=== PATIENT | male | born 1965 | race Caucasian/White ===

== ENCOUNTER → 2020-05-09 16:41 | Outpatient (CLI) | payer OTHER, SELFPAY ==
--- NOTE | ~2020-05-09 | XR_ITS ---
EXAMINATION: XR knee RT 3V EXAM DATE: 05/09/2020 18:56 INDICATION: No known recent injury provided at this time. Pain of the right knee. TECHNIQUE: Three projections of the right knee. There is no prior study for comparison. FINDINGS: No evidence osteochondral defect or joint body in the right knee joint. No joint effusio n. There are no acute fractures or dislocations identified. There is no subcutaneous gas. The soft tissue is unremarkable. There are no radiopaque foreign bodies. There is minimal patellofemoral co mpartment primary osteoarthritis. IMPRESSION: Minimal right patellofemoral compartment osteoarthritis. Reviewed, dictated and finalized at location A. [employer] STERILIZER
== END ==
PROVIDERS: PCP Family Medicine; Visit Provider Physician Assistant
DX: M25.569 Pain in unspecified knee (principal)
CPT/HCPCS: 73562

== ENCOUNTER 2021-05-16 07:05 | Outpatient (CLI) | payer OTHER, SELFPAY ==
--- NOTE | ~2021-05-16 | XR_ITS ---
EXAMINATION: XR chest 2V 05/16/2021 07:24 INDICATION: Chest pain PROCEDURE: 2 view chest COMPARISON: 08/03/2010 FINDINGS: The lungs are clear. The cardiomediastinal silhouette is within normal limits. There are no pleural effusions. There is no pneumothorax suspected. IMPRESSION: 1: NO ACUTE CARDIOPULMONARY DISEASE. Reviewed, dictated and finalized at location A. AL COP
--- NOTE | ~2021-05-16 | XR_ITS ---
XR thoracic spine 3V DATE: 05/16/2021 07:24 INDICATION: Back pain. No injury. TECHNIQUE: AP, lateral, swimmer views COMPARISON: 02/08/2006 thoracic spine FINDINGS: There is approximately 2.3 mm retrolisthesis and prominent degenerative disc disease at C3- 4. There is mild degenerative disease at C4-5. There is severe degenerative disc disease at C5-6. There is minimal degenerative spurring of the thoracic spine. No fracture or bone destruction of the thoracic spine is evident. The thoracic pedicles are intact. No paraspinal soft tissue thickening. Multilevel moderate degenerative disc disease of the included upper and mid lumbar spine. IMPRESSION: Degenerative changes Reviewed, dictated and finalized at location B. [employer] IMPRESSION: Degenerative changes
== END 2021-05-16 07:06 | disposition home or self-care (01) ==
PROVIDERS: PCP Family Medicine; Visit Provider Family Medicine
DX: M54.9 Dorsalgia, unspecified (principal); R07.89 Other chest pain
CPT/HCPCS: 71046; 72072

== ENCOUNTER 2022-02-23 10:30 | Outpatient (CLI) | payer OTHER, SELFPAY ==
--- NOTE | ~2022-02-23 | MR_ITS ---
EXAMINATION: MR foot LT wo/w con DATE: 02/23/2022 11:32 INDICATION: Soft tissue mass at the left foot TECHNIQUE: Magnetic resonance imaging (MRI) of the left fore/mid foot was performed without and with 18 mL Multihance intravenous contrast. Sequences included axial, sagittal and coronal T1-weighted FSE , sagittal fluid sensitive FSE STIR, coronal PD-weighted FS FSE, axial T2-weighted FS FSE, axial T1-w eighted FS FSE and postcontrast axial, sagittal and coronal T1-weighted FS FSE. A marker was placed o charlie the mass of concern. COMPARISON: None FINDINGS: Mild hallux valgus. Alignment is otherwise normal. No fracture or pathologic marrow replacing process . The marker overlies 3.1 x 2.2 x 1.6 cm homogeneously T2 hyperintense ganglion cyst with smooth thin enhancing rim positioned dorsally between the necks of the first and second metatarsals appearing to arise from the first metatarsophalangeal joint where there is moderate to severe osteoarthritis. Add itional mild osteoarthritis at the tarsal metatarsal and several interphalangeal joints. Lisfranc lig ament complex and the collateral ligament complex at the metatarsophalangeal and interphalangeal join ts are normal. Visualized portions of the flexor and extensor tendons as well as intrinsic musculatur e of the foot are normal. No other joint effusions or other abnormal fluid collections. IMPRESSION: 1. Moderate to severe osteoarthritis at the first metatarsophalangeal joint with 3.1 x 2.2 x 1.6 cm g anglion cyst arising from the joint space and positioned dorsally between the necks of the first and second metatarsals conifer the masslike region of concern. Reviewed, dictated and finalized at location A. IMPRESSION: 1. Moderate to severe osteoarthritis at the first metatarsophalangeal joint wit h 3.1 x 2.2 x 1.6 cm ganglion cyst arising from the joint space and positioned dorsally between the necks of the first and second metatarsals conifer the mass like region of concern.
== END 2022-02-23 10:31 ==
PROVIDERS: PCP Family Medicine; Visit Provider Podiatrist Foot & Ankle Surgery
DX: M19.072 Primary osteoarthritis, left ankle and foot (principal)
CPT/HCPCS: 73720; A9577

== ENCOUNTER 2022-04-03 08:08 | Outpatient (CLI) | payer OTHER, SELFPAY ==
--- NOTE | 2022-04-03 08:23 | ECG_ITS ---
Measurements Intervals [place] Rate: 60 P: 20 AR: 164 QRS: 9 QRSD: 110 T: 8 QT: 376 QTc: 376 Interpretive Statements SINUS RHYTHM DELAYED PRECORDIAL R/S TRANSITION BORDERLINE ECG NO PREVIOUS ECG AVAILABLE FOR COMPARISON Electronically Signed On 04-03-2022 8:54:51 STOCK FEEDER by Wally Owens D.O.
[2022-04-03 08:50] LABS: Anion Gap 9 mmol/L (8-16); Blood Urea Nitrogen 10 mg/dL (9-20); Calcium 8.8 mg/dL (8.4-10.2); Carbon Dioxide 29 mmol/L (22-30); Chloride 101 mmol/L (98-107); Estimated Glomerular Filt Rate > 60; Glucose 106 mg/dL (65-110); Potassium 4.6 mmol/L (3.4-5.0); Sodium 139 mmol/L (137-145)
== END 2022-04-03 08:09 | disposition home or self-care (01) ==
LOC: ANHSURGERY 08:12
PROVIDERS: Anesthesiology; PCP Family Medicine; Visit Provider Podiatrist Foot & Ankle Surgery
DX: E11.9 Type 2 diabetes mellitus without complications (principal); I10 Essential (primary) hypertension
CPT/HCPCS: 36415; 80048; 93005

== ENCOUNTER 2022-04-06 01:59 | Day surgery (SDC) | payer OTHER, SELFPAY ==
[2022-04-02 08:39] VITALS: BMI 27.0
--- NOTE | 2022-04-02 09:08 | PC.NURSE ---
Report to the Outpatient Waiting Room, entrance under the green pavilion located off [facility], at time _0730_ on date _04/06/22__. Planned Procedure Time: 0930__. Time changes happen often and if self-screen and do not enter if you have any COVID symptoms. your time is changed the preop area will call you the afternoon before. - You and your visitor will be asked to - YOU MAY HAVE UP TO TWO (2) VISITORS. We encourage only one visitor and NO visitors under age 16 are allowed at this time. Your visitor will receive communication by the phone number that is given day of service. - The patient visitor is requested to social distance or may leave the building when not with patient due to restrictions. - A mask is OPTIONAL within the hospital. Patients may have clear liquids (water, carbonated beverages, clear teas, apple juice) until 3 hours prior to surgery with a maximum of 20 ounces. - No food from midnight until time of surgery - Take the following medications with a SIP of water the morning of surgery: _N/A Medications to discontinue per physician _CALL DR. PINTO RE: WHEN TO STOP CELECOXIB__ Date to take last dose Please no make-up, nail sinhala, hairspray, perfume, deodorant, or body powder the day of surgery. No jewelry (including any body piercings) or valuables the day of surgery, leave them at home. Please take a shower or bath the night before, or the morning of, surgery with an antibacterial soap. Wear comfortable, loose fitting clothing. - Jewelry must be removed prior to entering the operating room. Rings and piercings that are not removed may be cut off. - The hospital will not accept responsibility for valuables. - Please leave all valuables, including medications, at home the day of surgery. If you are going home after surgery, a licensed limousine driver must drive you home. - NO public transportation without another adult. - We recommend that an adult stay with you for 24 hours following discharge. - We also recommend that you do not drive, make important decision, drink alcoholic beverages, or take any drugs that were not prescribed by your health care provider for at least 24 hours after your discharge time. Follow any additional instructions given to you from your surgeon. If you or anyone in your household have experienced Covid symptoms in the past week, please notify your surgeon or the nurse liaison at the phone number below for possible testing. Telephone instructions given to _GEORGI__and asked if any additional questions and then verbalized understanding. Patient advised to call surgeon office or pre surgery nurse liaison [phone] if any additional questions.
[2022-04-06] VITALS (7 sets, daily range): BP systolic 88–138; BP diastolic 49–88; PULSE 72–106; RESP 12–18; TEMP 36.2–36.3; O2SAT 95–100
--- NOTE | ~2022-04-06 | XR_ITS ---
EXAMINATION: XR surgery orthopedic DATE: 04/06/2022 10:59 INDICATION: Left first metatarsophalangeal arthrodesis. TECHNIQUE: 2 fluoroscopic images of the left forefoot were obtained during procedure performed by Dr. Chau. Radiologist was not present for the imaging or procedure. The amount of fluoroscopy time u sed during this procedure was 0.1 minutes. COMPARISON: None. FINDINGS: Left first metatarsophalangeal arthrodesis with dorsal plate and screw fixation. Alignment appears ne ar-anatomic. No fractures. Mild osteoarthritis at the majority of the interphalangeal joints. IMPRESSION: 1. Expected appearance post instrumented left first metatarsophalangeal arthrodesis. Reviewed, dictated and finalized at location A. ITAL SECURITY OFFICER IMPRESSION: 1. Expected appearance post instrumented left first metatarsophalangeal arthrod esis.
--- NOTE | 2022-04-06 07:15 | WPDHPUPDATE1 ---
History and Physical Update Update Date/Time: 04/06/22 07:15 History and Physical has been reviewed, including an updated exam of the patient. There are NO changes in the patient's condition. Risks, benefits, and alternatives have been discussed and questions answered. Patient agrees to proceed with procedure.
[2022-04-06 08:24] LABS: Glucose Point of Care 115 mg/dl (65-105)
[2022-04-06] MEDS: LACTATED RINGERS 1,000 ML 30 ML IV CONT ×2 (08:36→11:25)
--- NOTE | 2022-04-06 09:57 | P.PNAN_ITS ---
Anes - Initial Pre Proc Eval Procedure: Operation Date: 04/06/22 09:30 Proposed Procedures p Arthrodesis First Metatarsal Phalangeal Joint Left Foot, - Henry Chau JR, MD s Excision Ganglion Cyst Left Foot - Henry Chau JR, MD Date/Time: 04/06/22 09:57 Surgeon: Henry Chau JR, MD Pre Op Diagnosis: arthritis 1st mpj lt foot,ganglion cyst left foot Patient Data Age: 56 Gender: M Height: 1.8 m Weight: 90.1 kg Last Vital Signs Temp 36.2 C L 04/06/22 08:27 Pulse 72 04/06/22 08:27 Resp 14 04/06/22 08:27 BP 138/80 04/06/22 08:27 Pulse Ox 100 04/06/22 08:27 O2 Del Method Room Air 04/06/22 08:27 Allergies Allergy/AdvReac Type Severity Reaction Status Date / Time No Known Allergies Allergy Verified 04/06/22 08:36 Home Medications Medication Instructions Recorded Confirmed Type blood sugar diagnostic (Blood #100 ea 05/09/21 04/02/22 Rx Glucose Test strips) blood-glucose meter #1 ea 05/09/21 04/02/22 Rx lancets #100 ea 05/09/21 04/02/22 Rx celecoxib 200 mg capsule (Celebrex) 200 mg PO DAILY #90 caps 09/21/21 04/02/22 Rx lisinopril 20 mg tablet 20 mg PO DAILY #90 tabs 09/21/21 04/02/22 Rx metformin 500 mg tablet 500 mg PO BID #60 tabs 09/21/21 04/02/22 Rx sildenafil 50 mg tablet 50 mg PO DAILY PRN sexual activity 01/12/22 04/02/22 Rx #10 tabs Laboratory Tests 04/06/22 08:21 POC Capillary Glucose 115 mg/dl H mg/dl (65-105) Patient hx anesthesia problems: none Family hx anesthesia problems: none Results Review: All pre-operative results and documents have been reviewed as part of the pre- operative evaluation. [facility] Past Medical History Medical History Diabetes Hypertension Obesity (BMI 30-39.9) Family History Family History Other Family history of cardiovascular disease Social History Social History Second hand tobacco smoke exposure: Yes Alcohol intake: current Substance use: never Substance use type: does not use Living arrangements: with family Gender identity (if verbalized by the patient): Male Sexual Orientation (if Verbalized by the Patient): Straight or Heterosexual Spiritual care concerns: No Agree to blood products: Yes Anes - Eval Final PreProcedure Day of Procedure 04/06/22 09:57 Patient weight: overweight Heart: regular rate and rhythm Lungs: clear to auscultation Airway: Mallampati scale class II Neurological: alert and oriented Last oral intake: >/= 8 hours ASA classification: II Emergent: no Anesthetic plan: proceed Anesthesia type and monitoring: general LMA and standard monitoring Results Review: All pre-operative results and documents have been reviewed as part of the pre- operative evaluation. Informed Consent: The patient's anesthetic plan and its attendant risks and benefits were discussed with the patient/family/POA. Questions were solicited and answers provided to the satisfaction of the patient/family/POA.
[2022-04-06] MEDS: ceFAZolin 2 GM/D5W 50 ML 2 GM/50 ML BAG IVPB (09:58)
--- NOTE | 2022-04-06 09:58 | WPDANESPNB ---
Anes - Peripheral Nerve Block Date/Time: 04/06/22 09:58 I have discussed with the patient/family/POA the placement of a peripheral nerve block for post-operative pain management, including associated risks, benefits, complications, and side effects. Alternative methods of post-operative analgesia were detailed. Questions were solicited and answers provided to the satisfaction of the patient/family/POA. Time-Out: A pre-procedural Time-Out was completed immediately before starting the procedure and confirmed: Patient Identification, Site, Procedure, Patient Position and the Availability of Requisite Equipment. Clinical Indications: Acute post-operative pain management requested by the operative surgeon. Nerve Block Insertion Note Anes-nerve block: posterior fossa sciatic left and other (saphenous) Needle: 22 gauge, stimulating, insulated echogenic needle. Needle length: 80 mm Technique: nerve stimulation lost at (mA) (0.3) Injectate: bupivacaine 0.5% with epi 5 mcg/ml (no epi, 30cc sciatic, 10cc saphenous) and dexamethasone (mg) (4) Observations: tolerated well Complications: none Procedure start time:: 949 Procedure end time:: 956
--- NOTE | 2022-04-06 11:31 | W.PM.PROC2 ---
Procedure Note - Detailed Date of Procedure 04/06/22 Pre-op Diagnosis 1. Arthritis of the first metatarsal phalangeal joint left foot 2. Ganglion cyst left foot first intermetatarsal space Post-op Diagnosis Same Procedure Performed 1. Arthrodesis of the first metatarsal phalangeal joint right foot 2. Ganglion cyst excision left foot Surgeon Henry Chau JR, PRIYANK Anesthesia General and Regional Indications Painful first metatarsal phalangeal joint left foot with a prominent bone spur. Painful ganglion cyst left forefoot. Findings Ganglion cyst extending from lateral first metatarsal phalangeal joint. Description of Procedure PROCEDURE IN DETAIL: Under mild sedation, the patient was brought into the operating room, placed on the operating table in supine position. A pneumatic ankle tourniquet was placed about the patient's ipsilateral ankle. Following general LMA, and a popliteal fossa block the foot and ankle was then scrubbed, prepped, and draped in the usual aseptic manner. An Esmarch bandage was then used to exsanguinate the patient's foot and the pneumatic ankle tourniquet was then inflated. Surgery began in the following manner: Attention was directed to the dorsal aspect of the 1st metatarsophalangeal joint where there was a large subcutaneous prominence noted along the dorsomedial aspect of the joint. The incision was made starting along the central shaft of the 1st metatarsal and extending just proximal to the interphalangeal joint of the hallux. The incision was continued deep down through the subcutaneous tissues using sharp and blunt dissection. All bleeders were cauterized as necessary. A large thick walled ganglion cyst was noted with viscous jelly like straw colored matrial noted. It was excised in toto and sent for gross and histopathology. At this point, the dissection was continued down to the level of the periosteum and capsular structures overlying the 1st metatarsophalangeal joint. A full length periosteum and capsular incision was made just medial to the extensor hallucis longus tendon. The periosteum and capsular structures were freed from the base of the proximal phalanx as well as the distal 1st metatarsal. At this point, the 1st metatarsophalangeal joint was identified. There was almost complete loss of articular cartilage to the head of the 1st metatarsal as well as the base of the proximal phalanx. There was significant broadening and hypertrophy of the 1st metatarsophalangeal joint. Utilizing a sagittal bone saw, the hypertrophied 1st metatarsal was resected dorsally, medially, and laterally. A power bur was used to make sure that there were no rough edges and also to further debride the hypertrophic 1st metatarsal. Next, a rongeur was used to resect all hypertrophic base of the proximal phalanx. At this point, the reamer system for the [employer] system was used to denude the degenerative cartilage from the head of the 1st metatarsal as well as the base of the proximal phalanx. The cartilage and subchondral bone were fully debrided utilizing the reamer system until healthy bleeding bone was noted. Next, a 2-0 drill bit was used to further fenestrate the head of the 1st metatarsal as well as the base of the proximal phalanx in order to allow fusion across the 1st metatarsophalangeal joint. Next, a 0.045 inch K-wire was driven from the medial aspect of the base of the proximal phalanx into the head of the 1st metatarsal in order to serve as temporary fixation. A large steel plate was used to make sure that the hallux was in a rectus position both in the sagittal plane as well as the frontal and transverse plane. Excellent position of the hallux was noted. Next, a CrossCHECK plate was placed atop the 1st metatarsophalangeal joint held in position with [place] wires. Utilizing standard principles and techniques, the 2 distal drill holes were drilled and two 3.5 mm fully-threaded locking
[2022-04-06 11:47] LABS: Glucose Point of Care 137 mg/dl (65-105)
== END 2022-04-06 12:45 | disposition home or self-care (01) ==
PROVIDERS: PCP Family Medicine; Visit Provider Podiatrist Foot & Ankle Surgery
PROC: (CPT 28750; principal; 2022-04-06 09:30)
PROC: (CPT 28750; 2022-04-06 09:30)
DX: M19.072 Primary osteoarthritis, left ankle and foot (principal); M67.472 Ganglion, left ankle and foot; G89.18 Other acute postprocedural pain; E11.9 Type 2 diabetes mellitus without complications; I10 Essential (primary) hypertension; Z79.84 Long term (current) use of oral hypoglycemic drugs
CPT/HCPCS: 28750; 64450; 64445; 82948; 88305; 99199; C1713; J0690; J1100; J2250; J2405; J2704; J3010; J7120

== ENCOUNTER 2024-07-02 14:20 | Outpatient (CLI) | payer OTHER, SELFPAY ==
--- NOTE | ~2024-07-02 | XR_ITS ---
CHEST RADIOGRAPH, PA AND LATERAL CLINICAL HISTORY: R05.9 - Cough, unspecified . COMPARISON: 05/16/2021 TECHNIQUE: PA and lateral views of the chest. Axial FINDINGS The cardiomediastinal silhouette is unremarkable. The lungs are clear. Visualized osseous structures and soft tissues are unremarkable. IMPRESSION: No focal infiltrate or effusion. Reviewed, dictated and finalized at location A. PING LEAD
== END 2024-07-02 14:21 | disposition home or self-care (01) ==
LOC: MICIMG 14:23
PROVIDERS: PCP Family Medicine; Visit Provider Family Medicine
DX: R05.9 Cough, unspecified (principal)
CPT/HCPCS: 71046

== ENCOUNTER 2024-09-28 07:18 | Outpatient (CLI) | payer OTHER, SELFPAY ==
--- NOTE | ~2024-09-28 | XR_ITS ---
XR_CERV2-3V_CR 09/28/2024 07:33 Indication: Cervicalgia Procedure: 4 view cervical spine Comparison: No prior studies for comparison. Findings: Odontoid process is normal. Lateral masses normally aligned. There is multilevel uncinate a nd facet hypertrophy. No prevertebral soft tissue swelling. Prominent ventral osteophytes at C3-4 and C5-6. No acute fracture or traumatic malalignment. There is normal cervical alignment. Impression: 1: Moderate cervical spondylosis. Reviewed, dictated and finalized at location A. Impression: 1: Moderate cervical spondylosis.
== END 2024-09-28 07:19 | disposition home or self-care (01) ==
PROVIDERS: PCP Family Medicine; Visit Provider Student in an Organized Health Care Education/Training Program
DX: M47.812 Spondylosis without myelopathy or radiculopathy, cervical region (principal)
CPT/HCPCS: 72040